=== PATIENT | male | born 1960 | race Caucasian/White ===

== ENCOUNTER 2020-11-07 09:29 | Emergency (ER) | payer MEDICAID, OTHER ==
[~2020-11-07] VITALS: Ht 167.6 cm; Wt 79.4 kg
[2020-11-07 09:36] VITALS: BP 156/82
--- NOTE | 2020-11-07 09:40 | NUR ---
TO LOBBY A/W BED AMBULATORY
[2020-11-07] MEDS ORDERED: HYDROcodone/APAP 5/325 MG 1 TAB TAB PO ONE (11:45)
[2020-11-07 12:34] VITALS: BP 156/82
--- NOTE | 2020-11-07 12:34 | NUR ---
Patient discharged with v/s stable. Written and verbal after care instructions given and explained. Patient verbalized understanding. Ambulatory with steady gait. All questions addressed prior to discharge. Advised to follow up with PMD.
--- NOTE | 2020-11-07 12:34 | NUR ---
Patient assessed and discharged by Dr Lagos, no nursing interventions performed
== END 2020-11-07 12:34 | disposition home or self-care (01) ==
LOC: MED 09:29
DX: L10.0 Pemphigus vulgaris (principal); E11.9 Type 2 diabetes mellitus without complications; I10 Essential (primary) hypertension
CPT/HCPCS: 99281

== ENCOUNTER 2024-05-20 12:28 | Emergency (ER) | payer MEDICAID, OTHER ==
[~2024-05-20] VITALS: Ht 167.6 cm; Wt 90.7 kg
[2024-05-20 12:48] VITALS: BP 155/86; PULSE 89; RESP 18; TEMP 97.9; O2SAT 98
[2024-05-20] MEDS ORDERED: IBUP-2213 PO (14:02)
[2024-05-20] MEDS ORDERED: DICL20GE TP (14:02)
[2024-05-20] MEDS ORDERED: CYCL-711 PO (14:02)
[2024-05-20] MEDS: LIDOCAINE 5% 1 EA PATCH TP ONE (14:25)
[2024-05-20] MEDS: KETOROLAC 30 MG/ML VIAL IM ONE (14:36)
[2024-05-20 15:09] VITALS: BP 138/88; PULSE 66; RESP 16; TEMP 98.5; O2SAT 99
== END 2024-05-20 15:09 | disposition home or self-care (01) ==
LOC: MED 12:28
DX: M54.41 Lumbago with sciatica, right side (principal); E11.9 Type 2 diabetes mellitus without complications; I10 Essential (primary) hypertension; Z79.899 Other long term (current) drug therapy
CPT/HCPCS: 96372; 99283; J1885